=== PATIENT | male | born 1950 | race Caucasian/White ===

== ENCOUNTER 2020-11-07 14:36 | Inpatient (IN) | payer BC, OTHER, MEDICARE ==
[2020-11-07 16:26] VITALS: BMI 19.7
[2020-11-07] MEDS ORDERED: Melatonin 3 MG TAB PO PRN (17:35)
[2020-11-07] MEDS ORDERED: Calcium Carbonate 500 MG ChewTAB PO PRN (17:35)
[2020-11-07] MEDS: Acetaminophen 325 MG TAB PO PRN (19:14)
[2020-11-07] MEDS: Atorvastatin Calcium 40 MG TAB PO SCH (20:43)
[2020-11-07] MEDS: Famotidine 20 MG TAB PO SCH (20:43)
[2020-11-08 01:15] LABS: SARS-CoV-2 PCR by NAA Not Detected (NotDetected)
[2020-11-08 05:21] LABS: #Basophils 0.1 thou/uL (0.0-0.2); #Eosinphils 0.2 thou/uL (0.0-0.7); #Lymphocytes 2.4 thou/uL (1.20-3.40); #Monocytes 0.6 thou/uL (0.11-0.59); #Neutrophils 3.1 thou/uL (1.40-6.50); %Basophils 1.2 % (0.0-1.0); %Monocytes 9.7 % (0.0-10.0); %Neutrophils 49.2 % (42.0-75.0); Hemoglobin 13.4 g/dL (14.0-18.0); Mean Corpuscular HGB CONC 32.2 g/dL (32.0-36.0); Mean Corpuscular Hemoglobin 32.1 pg (27.0-31.0); Mean Corpuscular Volume 99.6 fL (78.0-98.0); Mean Platelet Volume 7.7 fL (7.4-10.4); Platelet Count 212 thou/uL (130-400); Red Blood Cell (RBC) Count 4.18 mill/uL (4.70-6.10); White Blood Cell (WBC) Count 6.4 thou/uL (4.8-10.8)
[2020-11-08 05:29] LABS: Hemoglobin A1c 5.2 % (4.0-6.0)
[2020-11-08 05:44] LABS: Anion Gap 11 mmol/L (10-20); BUN (Urea Nitrogen) 17 mg/dL (8.4-25.7); Calc. Creatinine Clearance 72 mL/min (70-130); Calcium 9.1 mg/dL (7.8-10.44); Carbon Dioxide 26 mmol/L (23-31); Cardiac Risk 3.3 (Less than 4.5); Chloride 111 mmol/L (98-107); Cholesterol 121 mg/dl (< 200 Desired); Glucose 100 mg/dL (80-115); HDL Cholesterol 37 mg/dL (>60 Neg Risk); LDL Cholesterol, Calculated 75 mg/dL; Magnesium 2.1 mg/dL (1.6-2.6); Potassium 4.2 mmol/L (3.5-5.1); Sodium 144 mmol/L (136-145); Triglycerides 45 mg/dL (Less than 150)
[2020-11-08] MEDS: Famotidine 20 MG TAB PO SCH ×2 (08:09→20:29)
[2020-11-08] MEDS ORDERED: Aspirin 81 mg Enteric Coated Tablet PO SCH (09:00)
[2020-11-08 10:20] LABS: Syphilis Antibody Nonreactive (Nonreactive); Syphilis Antibody Index 0.03 S/CO (<1.00 Non-Reactive)
[2020-11-08 10:26] LABS: Thyroid Stimulating Hormone 0.8059 uIU/mL (0.35-4.94)
[2020-11-08] MEDS: Acetaminophen 325 MG TAB PO PRN (16:21)
[2020-11-08] MEDS: Atorvastatin Calcium 40 MG TAB PO SCH (20:28)
[2020-11-09 05:09] LABS: #Basophils 0.1 thou/uL (0.0-0.2); #Eosinphils 0.2 thou/uL (0.0-0.7); #Lymphocytes 2.4 thou/uL (1.20-3.40); #Monocytes 0.5 thou/uL (0.11-0.59); #Neutrophils 3.3 thou/uL (1.40-6.50); %Basophils 1.5 % (0.0-1.0); %Eosinophils 2.5 % (0.0-10.0); %Lymphocytes 37.5 % (21.0-51.0); %Monocytes 7.9 % (0.0-10.0); %Neutrophils 50.6 % (42.0-75.0); Hemoglobin 13.8 g/dL (14.0-18.0); Mean Corpuscular HGB CONC 33.7 g/dL (32.0-36.0); Mean Corpuscular Hemoglobin 33.5 pg (27.0-31.0); Mean Corpuscular Volume 99.2 fL (78.0-98.0); Mean Platelet Volume 7.8 fL (7.4-10.4); Platelet Count 196 thou/uL (130-400); RBC Distribution Width 10.9 % (11.5-14.5); Red Blood Cell (RBC) Count 4.13 mill/uL (4.70-6.10); White Blood Cell (WBC) Count 6.5 thou/uL (4.8-10.8)
[2020-11-09 05:33] LABS: Anion Gap 11 mmol/L (10-20); BUN (Urea Nitrogen) 15 mg/dL (8.4-25.7); Calc. Creatinine Clearance 67 mL/min (70-130); Calcium 8.5 mg/dL (7.8-10.44); Carbon Dioxide 25 mmol/L (23-31); Chloride 109 mmol/L (98-107); Glucose 101 mg/dL (80-115); Potassium 4.1 mmol/L (3.5-5.1); Sodium 141 mmol/L (136-145)
[2020-11-09 10:02] VITALS: BP 93/51; TEMP 98.1
== END 2020-11-09 10:40 | disposition home or self-care (01) | DRG 312 ==
LOC: 2SW 15:56 → OBSVTOIN 11-08 17:26
PROVIDERS: ADMIT Hospitalist; ATTEND Family Medicine
DX: I95.1 Orthostatic hypotension (principal); Z20.822 Contact with and (suspected) exposure to COVID-19; F17.210 Nicotine dependence, cigarettes, uncomplicated; K21.9 Gastro-esophageal reflux disease without esophagitis; D64.9 Anemia, unspecified; Z98.890 Other specified postprocedural states; Z82.3 Family history of stroke
CPT/HCPCS: 36415; 70551; 80048; 80061; 82140; 82607; 82746; 83036; 83735; 84443; 85025; 86780; 87635; 93306; G0378; U0003; U0005